=== PATIENT | female | born 1975 | race Caucasian/White ===

== ENCOUNTER → 2018-07-25 | Outpatient (CLI) | payer BC ==
--- NOTE | 2018-07-25 12:49 | Diagnostic Imaging Report ---
PROCEDURE: CT sinuses without contrast TECHNIQUE: Multiple contiguous axial images were obtained through the sinuses without the use of intravenous contrast. Coronal and sagittal reformations were then performed. INDICATION: Sinus pressure and headaches. FINDINGS: The frontal sinuses are clear. Ethmoid air cells appear to be clear apart from minimal mucosal thickening of left-sided ethmoid air cells. The sphenoid is unremarkable. Bilateral maxillary sinuses are clear. No mucosal thickening or air-fluid levels are seen. Ostiomeatal complexes are patent. Nasal septum is midline. Mastoid air cells are well aerated. IMPRESSION: No evidence of sinusitis. Dictated by: Dictated on workstation # [id number]
== END ==
LOC: RAD 12:02
PROVIDERS: ATTEND Otolaryngology Otolaryngology/Facial Plastic Surgery
DX: J34.89 Other specified disorders of nose and nasal sinuses (principal); R51 Headache
CPT/HCPCS: 70486

== ENCOUNTER → 2018-09-05 | Outpatient (CLI) | payer BC ==
--- NOTE | 2018-09-05 09:31 | Diagnostic Imaging Report ---
PROCEDURE: CT urinary tract, rule out kidney stone. TECHNIQUE: Multiple contiguous axial images were obtained through the abdomen and pelvis without the use of intravenous contrast. INDICATION: Recurrent left flank pain. No prior studies are available for comparison. The lung bases are clear. The liver is unremarkable. Gallbladder is not visualized and may be surgically absent. The pancreas and spleen are unremarkable. No adrenal mass is detected. No renal calculi or hydronephrosis is detected. The bladder is unremarkable. Metallic devices in the pelvis are noted, perhaps from prior tubal ligation. Uterus is unremarkable. The bowel loops are normal caliber. No obstruction is seen. There is no ascites. Aorta does show some atherosclerotic calcification but is nonaneurysmal. No definite inflammatory process is seen. IMPRESSION: Unremarkable noncontrast CT of the abdomen and pelvis. No urinary tract calculi or obstruction is detected. Dictated by: Dictated on workstation # [id number]
== END ==
LOC: RAD 08:58
PROVIDERS: ATTEND Internal Medicine
DX: R10.9 Unspecified abdominal pain (principal)
CPT/HCPCS: 74176

== ENCOUNTER → 2020-11-16 | Outpatient (CLI) | payer BC | LOC: LABNPT 08:41 | PROVIDERS: ATTEND Internal Medicine | DX: U07.1 COVID-19 (principal) | CPT/HCPCS: 87635 ==

== ENCOUNTER → 2023-05-03 | Outpatient (CLI) | payer BC ==
--- NOTE | 2023-05-03 12:31 | Diagnostic Imaging Report ---
EXAMINATION: Thoracic spine radiographs, 2 views. COMPARISON: None. HISTORY: 47-year-old female, chronic mid back pain. FINDINGS: There is a very mild upper thoracic dextrocurvature. There is no compression deformity or fracture. The thoracic disc heights are well preserved. IMPRESSION: 1. Very mild upper thoracic dextrocurvature. 2. Additional radiographic assessment of the thoracic spine is unremarkable. Dictated by: Dictated on workstation # [id number]
--- NOTE | 2023-05-03 13:23 | Diagnostic Imaging Report ---
EXAMINATION: Cervical spine 2 or 3 views HISTORY: Neck pain COMPARISON: None available. FINDINGS: There is calcification in the left carotid bifurcation. Cervical spine alignment is normal. Vertebral body heights are normal. Disc heights are normal. No fracture is seen. No prevertebral swelling. IMPRESSION: 1. Normal cervical spine. Dictated by: Dictated on workstation # [id number]
--- NOTE | 2023-05-03 13:31 | Diagnostic Imaging Report ---
EXAMINATION: Lumbosacral spine 2 or 3 views HISTORY: Back pain COMPARISON: None available. FINDINGS: Alignment is normal. No fracture is seen. Vertebral body heights are normal. There is mild L5-S1 degenerative disc disease. There are calcifications in the aorta. IMPRESSION: 1. Mild L5-S1 degenerative disc disease. Dictated by: Dictated on workstation # [id number]
== END ==
LOC: RAD 11:08
PROVIDERS: ATTEND Family Medicine
DX: M51.37 Other intervertebral disc degeneration, lumbosacral region (principal); M43.8X4 Other specified deforming dorsopathies, thoracic region; M25.50 Pain in unspecified joint
CPT/HCPCS: 72040; 72070; 72100

== ENCOUNTER → 2023-05-17 | Outpatient (CLI) | payer BC ==
--- NOTE | 2023-05-17 16:26 | Diagnostic Imaging Report ---
PROCEDURE: Pelvic comp/transvaginal sonogram. TECHNIQUE: Complete transabdominal and transvaginal pelvic ultrasound was performed. In addition, limited pelvic Doppler was performed. INDICATION: Abnormal uterine bleeding. The uterus is anteverted measuring 8.4 x 3.6 x 4.6 cm. The endometrium is 8 mm in thickness. No myometrial mass is detected. The left ovary is surgically absent. Right ovary measures 2.6 x 1.5 x 2.1 cm. The right ovary does contain a 13 mm cyst. There is blood flow to the right ovary. No adnexal mass or free fluid is detected. IMPRESSION: 1. Surgically absent left ovary. 2. 13 mm right ovarian cyst. Dictated by: Dictated on workstation # [id number]
== END ==
LOC: RAD 14:42
PROVIDERS: ATTEND Family Medicine
DX: N83.201 Unspecified ovarian cyst, right side (principal); Z90.721 Acquired absence of ovaries, unilateral
CPT/HCPCS: 76830; 76856

== ENCOUNTER → 2023-07-05 | Outpatient (CLI) | payer BC ==
--- NOTE | 2023-07-05 10:28 | Diagnostic Imaging Report ---
INDICATION: Pulsatile abdominal aorta. Proximal abdominal aorta measures 1.8 x 1.7 cm. Mid abdominal aorta is 1.5 x 1.4 cm. Distal abdominal aorta is 1.4 x 1.4 cm. The right iliac is 0.7 x 0.8 cm and the left iliac is 0.8 x 0.8 cm. No aneurysm is detected. Some mild plaquing in the distal abdominal aorta. Velocities in the common iliac arteries do appear to be somewhat elevated, measuring up to 288 cm/s on the right and 241 cm/s on the left. IMPRESSION: No evidence of abdominal aortic aneurysm. There are some elevated velocities in the common iliac arteries. Stenoses cannot be entirely excluded. CT angiography could be performed for further evaluation, if clinically indicated.. Dictated by: Dictated on workstation # [id number]
== END ==
LOC: RAD 07:41
DX: Q22.1 Congenital pulmonary valve stenosis (principal)
CPT/HCPCS: 76775